=== PATIENT | male | born 1945 | race Caucasian/White ===

== ENCOUNTER 2017-12-31 03:16 | Emergency (ER) | payer MEDICARE, OTHER ==
[~2017-12-31] VITALS: Ht 177.8 cm; Wt 79.5 kg
[~2017-12-31 03:16] MED LIST: ADVAI100I PO; ALLO100 PO; ASPI325T PO; CENTTAB20 PO; CEPH500C3 PO; FAMO1TAB36 PO; FURO20 PO; LANO0.1212 PO; LOSA25 PO; TOPR100T15 PO; ZOCO40TA PO
[2017-12-31 03:23] VITALS: BP 116/77; PULSE 108; RESP 24; TEMP 98; O2SAT 93
[2017-12-31] MEDS ORDERED: FUROSEMIDE 40 MG/4 ML VIAL IVP ONE (03:30)
[2017-12-31] MEDS ORDERED: SODIUM CHLORIDE 0.9% FLUSH 10 ML FLUSH IVF PRN (03:30)
[2017-12-31] MEDS ORDERED: APIX5TAB PO (03:34)
[2017-12-31] MEDS ORDERED: PROS5TAB PO (03:34)
[2017-12-31] MEDS ORDERED: ALLO100T PO (03:34)
[2017-12-31] MEDS ORDERED: LEVO.05 PO (03:34)
[2017-12-31] MEDS ORDERED: MULT-65 PO (03:34)
[2017-12-31] MEDS ORDERED: DIGO0.12 PO (03:34)
[2017-12-31] MEDS ORDERED: ADVA115A INH (03:34)
[2017-12-31] MEDS ORDERED: TAMS5CAP PO (03:34)
[2017-12-31] MEDS ORDERED: SPIRCAP INH (03:34)
[2017-12-31] MEDS ORDERED: FAMO1TAB37 PO (03:34)
[2017-12-31] MEDS ORDERED: TOPR25TA PO (03:34)
[2017-12-31] MEDS ORDERED: FURO1TAB60 PO (03:34)
[2017-12-31 03:40] VITALS: BP 116/77; PULSE 100; RESP 20; O2SAT 90
[2017-12-31 03:41] LABS: AUTOMATED NEUTROPHIL # 5.2 TH/MM3 (1.8-7.7); BASOPHIL % 0.5 % (0.0-2.0); EOSINOPHIL # 0.2 TH/MM3 (0-0.4); HEMATOCRIT 37.7 % (39.0-51.0); HEMOGLOBIN 12.4 GM/DL (13.0-17.0); LYMPH % 10.5 % (9.0-44.0); LYMPHOCYTE # 0.7 TH/MM3 (1.0-4.8); MEAN CELL VOLUME 97.2 FL (80.0-100.0); MEAN CORPUSCULAR HEMOGLOBIN 31.9 PG (27.0-34.0); MEAN CORPUSCULAR HGB CONC 32.8 % (32.0-36.0); MEAN PLATELET VOLUME 9.2 FL (7.0-11.0); MONOCYTE # 0.6 TH/MM3 (0-0.9); PLATELET COUNT 110 TH/MM3 (150-450); RED BLOOD COUNT 3.88 MIL/MM3 (4.50-5.90); RED CELL DISTRIBUTION WIDTH 15.1 % (11.6-17.2); WHITE BLOOD COUNT 6.7 TH/MM3 (4.0-11.0)
[2017-12-31] MEDS: RESP: ALBUTEROL 2.5 MG/IPRATROPIUM 0.5 MG NEB (SCH) INH ×2 (03:44→03:45)
[2017-12-31 03:45] VITALS: O2SAT 92
[2017-12-31 03:51] LABS: CHLORIDE 106 MEQ/L (98-107); SODIUM (NA) 137 MEQ/L (136-145)
[2017-12-31 03:55] LABS: ALBUMIN 3.4 GM/DL (3.4-5.0); BICARBONATE 25.7 MEQ/L (21.0-32.0); BLOOD UREA NITROGEN 31 MG/DL (7-18); CALCIUM 8.3 MG/DL (8.5-10.1); GLUCOSE,RANDOM 108 MG/DL (74-106); MAGNESIUM 2.1 MG/DL (1.5-2.5)
--- NOTE | 2017-12-31 03:57 | RADRPT ---
EXAM DATE/TIME: 12/31/2017 03:39 [place] COMPARISON: No previous studies available for comparison. INDICATIONS : Shortness of breath for 5 hours MEDICAL HISTORY : Congestive heart failure. SURGICAL HISTORY : Pacemaker. ENCOUNTER: Initial ACUITY: 1 day PAIN SCORE: 0/10 LOCATION: Bilateral chest FINDINGS: PA and lateral views of the chest demonstrate a mild edema pattern with small bilateral pleural effus ions. Heart size enlarged. Pacer leads in right atrium and right ventricle and overlying coronary sin us. CONCLUSION: 1. Mild congestive heart failure. Alfa Willard MD on December 31, 2017 at 3:55 Board Certified Radiologist. This report was verified electronically.
[2017-12-31 03:58] LABS: ALT (GPT) 12 U/L (12-78); AST (GOT) 17 U/L (15-37); GLOMERULAR FILTRATION RATE 23 ML/MIN (>89)
[2017-12-31 04:00] LABS: TOTAL BILIRUBIN ADULT 0.7 MG/DL (0.2-1.0); TOTAL PROTEIN 7.7 GM/DL (6.4-8.2)
[2017-12-31 04:01] LABS: ALKALINE PHOSPHATASE 139 U/L (45-117)
[2017-12-31 04:35] VITALS: BP 107/65; PULSE 92; RESP 18; O2SAT 92
[2017-12-31 05:00] LABS: BILIRUBIN, URINE NEG (NEG); BLOOD, URINE NEG (NEG); GLUCOSE,URINE NEG (NEG); KETONE, URINE NEG (NEG); NITRITE,URINE NEG (NEG); PH, URINE 5.5 (5.0-8.5); URINE LEUKOCYTE ESTERASE NEG (NEG)
[2017-12-31 05:05] LABS: RBC, URINE 0-2 /hpf (0-3); SQUAMOUS EPITHELIAL CELL URINE 0-5 /hpf (0-5); URINE COLOR YELLOW (YELLW/STRAW); WBC, URINE 0-2 /hpf (0-5)
--- NOTE | 2017-12-31 05:06 | PD ---
HPI Chief Complaint: Respiratory Symptoms Time Seen by Provider: 03:21 Travel History International Travel<30 days: No Contact w/Intl Traveler<30days: No Traveled to known affect area: No History of Present Illness HPI The patient is a 72-year-old male that began getting short of breath at 11 PM yesterday. He does have a history of both COPD and congestive heart failure. He gave up smoking in 1999. He does have bilateral leg swelling area the patient does get oxygen at home at 2 L nasal cannula. The patient got considerably more short of breath around 2:30/3:00 in the morning and call the ambulance that around 3:00. He does have polycystic kidney disease and his creatinine normally is over 2. He does take 40 mg of Lasix daily. PFSH Past Medical History Cardiomyopathy: Yes Congestive Heart Failure: Yes (SYSTOLIC HEART FAILURE) COPD: Yes Diminished Hearing: No Hypertension: Yes Immunizations Current: Yes Tetanus Vaccination: < 5 Years Influenza Vaccination: Yes Past Surgical History Genitourinary Surgery: Yes (HERNIA REPAIR, GALLBLADDER REMOVED) Social History Alcohol Use: Yes (RARELY) Tobacco Use: No (QUIT 1999) Substance Use: No Allergies-Medications (Allergen,Severity, Reaction): Coded Allergies: No Known Allergies (Unverified Adverse Reaction, Unknown, 12/31/17) Reported Meds & Prescriptions Reported Meds & Active Scripts Active Reported Spiriva Handihaler (Tiotropium Inh) 18 Mcg Cap 18 Mcg INH DAILY 1 capsule = 18 mcg Allopurinol 100 Mg Tab 100 Mg PO DAILY Toprol XL (Metoprolol Succinate) 25 Mg Tab 25 Mg PO DAILY Pepcid (Famotidine) 20 Mg Tab 20 Mg PO BID Synthroid (Levothyroxine Sodium) 50 Mcg Tab 50 Mcg PO DAILY Lasix (Furosemide) 40 Mg Tab 40 Mg PO DAILY Digoxin 0.125 Mg Tab 0.125 Mg PO DAILY Flomax (Tamsulosin HCl) 0.4 Mg Cap 0.8 Mg PO HS Proscar (Finasteride) 5 Mg Tab 5 Mg PO DAILY Do not crush. Eliquis (Apixaban) 5 Mg Tab 5 Mg PO BID Multi-Vitamin Daily (Multiple Vitamin) 1 Tab Tab 1 Tab PO DAILY Advair Hfa 12 GM Inh (Fluticasone-Salmeterol 12 GM Inh) 115-21 Mcg/Act Aer 2 Puff INH BID Review of Systems Except as stated in HPI: all other systems reviewed are Neg Physical Exam Narrative GENERAL: The patient is alert, oriented 3 in slight respiratory distress when he came in. His vital signs show heart rate of 108 with respirations 24 and oximetry 93%. SKIN: Focused skin assessment warm/dry. HEAD: Atraumatic. Normocephalic. EYES: Pupils equal and round. No scleral icterus. No injection or drainage. ENT: No nasal bleeding or discharge. Mucous membranes pink and moist. NECK: Trachea midline. No JVD. No neck vein distention is noted. CARDIOVASCULAR: Regular rate and rhythm. No murmur appreciated. RESPIRATORY: No accessory muscle use. A few widely scattered bibasilar rails were heard initially. Breath sounds equal bilaterally. GASTROINTESTINAL: Abdomen soft, non-tender, nondistended. Hepatic and splenic margins not palpable. No guarding or rebound is present. MUSCULOSKELETAL: No obvious deformities. No clubbing. No cyanosis. There is 2 + bilateral lower extremity edema. NEUROLOGICAL: Awake and alert. No obvious cranial nerve deficits. Motor grossly within normal limits. Normal speech. PSYCHIATRIC: Appropriate mood and affect; insight and judgment normal. Data Data Last Documented VS Vital Signs Date Time Temp Pulse Resp B/P (MAP) Pulse Ox O2 Delivery O2 Flow Rate FiO2 12/31/17 04:35 92 18 107/65 (79) 92 Nasal Cannula 2.00 12/31/17 03:23 98.0 Orders Orders Complete Blood Count With Diff (12/31/17 03:19) Blood Culture (12/31/17 03:19) Iv Access Insert/Monitor (12/31/17 03:19) Ecg Monitoring (12/31/17 03:19) Oxygen Administration (12/31/17 03:19) Oximetry (12/31/17 03:19) Electrocardiogram (12/31/17 03:19) Comprehensive Metabolic Panel (12/31/17 03:21) B-Type Natriuretic Peptide (12/31/17 03:21) Magnesium (Mg) (12/31/17 03:21) Urinalysis - C+S If Indicated (12/31/17 03:21) Electrocardiogram (12/31/17 03:21) Chest, Pa & Lat (12/31/17 03:21) Sodium Chloride 0.9% Flush (Ns Flush) (12/31/17 03:30) Furosemide Inj (Lasix Inj) (12/31/17 03:30) Albuterol-Ipratropium Neb (Duoneb Neb) (12/31/17 03:30) Labs Laboratory Tests Test 12/31/17 03:25 12/31/17 04:45 White Blood Count 6.7 TH/MM3 Red Blood Count 3.88 MIL/MM3 Hemoglobin 12.4 GM/DL Hematocrit 37.7 % Mean Corpuscular Volume 97.2 FL Mean Corpuscular Hemoglobin 31.9 PG Mean Corpuscular Hemoglobin Concent 32.8 % Red Cell Distribution Width 15.1 % Platelet Count 110 TH/MM3 Mean Platelet Volume 9.2 FL Neutrophils (%) (Auto) 77.0 % Lymphocytes (%) (Auto) 10.5 % Monocytes (%) (Auto) 9.0 % Eosinophils (%) (Auto) 3.0 % Basophils (%) (Auto) 0.5 % Neutrophils # (Auto) 5.2 TH/MM3 Lymphocytes # (Auto) 0.7 TH/MM3 Monocytes # (Auto) 0.6 TH/MM3 Eosinophils # (Auto) 0.2 TH/MM3 Basophils # (Auto) 0.0 TH/MM3 CBC Comment DIFF FINAL Differential Comment Blood Urea Nitrogen 31 MG/DL Creatinine 2.70 MG/DL Random Glucose 108 MG/DL Total Protein 7.7 GM/DL Albumin 3.4 GM/DL Calcium Level 8.3 MG/DL Magnesium Level 2.1 MG/DL Alkaline Phosphatase 139 U/L Aspartate Amino Transf (AST/SGOT) 17 U/L Alanine Aminotransferase (ALT/SGPT) 12 U/L Total Bilirubin 0.7 MG/DL Sodium Level 137 MEQ/L Potassium Level 4.4 MEQ/L Chloride Level 106 MEQ/L Carbon Dioxide Level 25.7 MEQ/L Anion Gap 5 MEQ/L Estimat Glomerular Filtration Rate 23 ML/MIN B-Type Natriuretic Peptide 1807 PG/ML [facility] Medical Decision Making Medical Screen Exam Complete: Yes Emergency Medical Condition: Yes Medical Record Reviewed: Yes Interpretation(s) The x-ray shows mild congestive heart failure. The CBC shows a hemoglobin of 12.4 and hematocrit of 37.7 with 77% neutrophils but is otherwise unremarkable. The complete metabolic profile shows a BUN of 31, creatinine 2.7, GFR of 23 and calcium 8.3 and alkaline phosphatase 139 but is otherwise unremarkable. The BNP is 1807. Differential Diagnosis Congestive heart failure, pulmonary edema, COPD with acute exacerbation, bronchospasm Narrative Course There is no evidence for bronchospasm clinically. He was given 3 DuoNeb treatments nevertheless. It is now 0500 and the patient feels much better and wants to go home. He had an episode of congestive heart failure. This is indicated by the chest x-ray and the BNP and his clinical exam of Rales in the lungs and swelling in both legs. Diagnosis Primary Impression: Congestive heart failure Additional Instructions: As we discussed, follow-up with your primary care physician as soon as possible. He had an episode of congestive heart failure. He should be the one to adjust your diuretic dose. Med/Other Pt SpecificInfo: No Change to Meds Disposition: 01 DISCHARGE HOME Condition: Stable Sonu Guan MD Dec 31, 2017 05:06
--- NOTE | 2017-12-31 14:28 | EKG ---
Date Performed: 12/31/2017 Time Performed: 03:30:22 PTAGE: 72 years EKG: ELECTRONIC VENTRICULAR PACEMAKER ABNORMAL RHYTHM ECG NO PREVIOUS TRACING DOCTOR: Chanda William Interpretating Date/Time 12/31/2017 14:26:05
== END 2017-12-31 05:19 | disposition home or self-care (01) ==
LOC: PHED 03:16
DX: I11.0 Hypertensive heart disease with heart failure (principal); I50.9 Heart failure, unspecified; J44.9 Chronic obstructive pulmonary disease, unspecified; R94.31 Abnormal electrocardiogram [ECG] [EKG]; I42.9 Cardiomyopathy, unspecified; Q61.3 Polycystic kidney, unspecified; Z99.81 Dependence on supplemental oxygen; Z87.891 Personal history of nicotine dependence
CPT/HCPCS: 71046; 80053; 81001; 83735; 83880; 85025; 87040; 93005; 94640; 94664; 96374; 99285; J1940